=== PATIENT | female | born 1955 | race Asian ===

== ENCOUNTER → 2020-05-17 | Outpatient (CLI) | payer BC, OTHER | LOC: INF 16:13 | PROVIDERS: ATTEND Internal Medicine | DX: Z23 Encounter for immunization (principal) | CPT/HCPCS: 96372 ==

== ENCOUNTER 2020-06-10 08:03 | Outpatient (CLI) | payer BC, OTHER | END 2020-06-10 23:59 | disposition home or self-care (01) | LOC: INF 08:03 | PROVIDERS: ATTEND Internal Medicine | DX: Z23 Encounter for immunization (principal) | CPT/HCPCS: 96372 ==

== ENCOUNTER 2020-07-14 14:33 | Outpatient (CLI) | payer BC | END 2020-07-14 19:24 | disposition home or self-care (01) | LOC: MAMMO 14:33 | PROVIDERS: ATTEND Obstetrics & Gynecology | DX: Z12.31 Encounter for screening mammogram for malignant neoplasm of breast (principal) ==

== ENCOUNTER 2020-08-13 10:31 | Outpatient (CLI) | payer BC | END 2020-08-13 20:01 | disposition home or self-care (01) | LOC: MAMMO 10:31 | PROVIDERS: ATTEND Obstetrics & Gynecology | DX: R92.8 Other abnormal and inconclusive findings on diagnostic imaging of breast (principal) | CPT/HCPCS: G0279 ==